=== PATIENT | female | born 1945 | race Hispanic/Latino ===

== ENCOUNTER → 2017-12-04 | Outpatient (CLI) | payer MEDICARE ==
[~2017-12-04] VITALS: Ht 157.5 cm; Wt 72.6 kg
[~2017-12-04] MED LIST: ATOR10TA69 PO; GLIM2TAB3 PO; LISI1TAB11 PO; METF500T6 PO; REGADENOSON 0.4 MG/5 ML PF SYG IVP ONE; REGADENOSON 0.4 MG/5 ML PF SYG IVP SCH
== END | disposition home or self-care (01) ==
LOC: SHCH 08:58
PROVIDERS: ATTEND Internal Medicine Cardiovascular Disease
DX: I20.8 Other forms of angina pectoris (principal)
CPT/HCPCS: 78452; 93017; 96374; A9500 ×2; J2785

== ENCOUNTER → 2018-07-18 | Outpatient (CLI) | payer MEDICARE ==
[~2018-07-18] MED LIST changes: +ASPI-555 PO; -ATOR10TA69 PO; +CEPH500B PO; +DILT180C47 PO; +ERGO500014 PO; +METF-444 PO; -METF500T6 PO; +MONT10TA24 PO; +NITR0.4T50 SL; -REGADENOSON 0.4 MG/5 ML PF SYG IVP ONE; -REGADENOSON 0.4 MG/5 ML PF SYG IVP SCH
== END | disposition home or self-care (01) ==
LOC: RAH 13:06
PROVIDERS: ATTEND Nurse Practitioner Adult Health
DX: N39.0 Urinary tract infection, site not specified (principal); Z87.440 Personal history of urinary (tract) infections
CPT/HCPCS: 76770

== ENCOUNTER → 2018-09-10 | Outpatient (CLI) | payer MEDICARE ==
[2018-09-10 14:09] LABS: HEMATOCRIT 38.8 % (36-48); MEAN CORPUSCULAR HEMOGLOBIN 31.1 pg (27.0-33.0); MEAN CORPUSCULAR VOLUME 91.3 fL (79-99); PLATELET COUNT (AUTO) 286 K/uL (130-400); RED BLOOD CELL COUNT(AUTO) 4.25 MIL/uL (4.00-5.50); RED CELL DISTRIBUTION WIDTH 13.2 % (11.0-15.5); WHITE BLOOD COUNT (AUTO) 8.2 K/uL (4.8-10.8)
[2018-09-10 14:19] LABS: CREATININE 0.8 mg/dL (0.5-1.5); POTASSIUM 4.2 mmol/L (3.5-5.1)
== END | disposition home or self-care (01) ==
LOC: LAB 13:36
PROVIDERS: ATTEND Urology
DX: N39.0 Urinary tract infection, site not specified (principal)
CPT/HCPCS: 36415; 80048; 85025

== ENCOUNTER → 2018-09-14 | Outpatient (CLI) | payer MEDICARE ==
[~2018-09-14] MED LIST changes: +IOHEXOL-350 50ML VIAL IV ONE
== END | disposition home or self-care (01) ==
LOC: RAH 07:48
PROVIDERS: ATTEND Urology
DX: K57.30 Diverticulosis of large intestine without perforation or abscess without bleeding (principal); K44.9 Diaphragmatic hernia without obstruction or gangrene; M47.816 Spondylosis without myelopathy or radiculopathy, lumbar region; N39.0 Urinary tract infection, site not specified
CPT/HCPCS: 74178; Q9967

== ENCOUNTER → 2019-02-07 | Outpatient (CLI) | payer MEDICARE ==
[~2019-02-07] MED LIST changes: -IOHEXOL-350 50ML VIAL IV ONE; -LISI1TAB11 PO; +LISI1TAB27 PO
== END | disposition home or self-care (01) ==
LOC: RAH 14:28
PROVIDERS: ATTEND Nurse Practitioner Adult Health
DX: S83.242A Other tear of medial meniscus, current injury, left knee, initial encounter (principal); M25.462 Effusion, left knee; X58.XXXA Exposure to other specified factors, initial encounter; Y93.89 Activity, other specified; Y92.89 Other specified places as the place of occurrence of the external cause; Y99.8 Other external cause status
CPT/HCPCS: 73721

== ENCOUNTER → 2019-04-24 | Outpatient (CLI) | payer MEDICARE ==
[~2019-04-24] MED LIST changes: +ALBUTEROL SULFATE 0.083% 2.5 MG/3 ML INH IH ONE; -GLIM2TAB3 PO; +GLIM2TAB4 PO; -LISI1TAB27 PO; +LISI1TAB28 PO
== END | disposition home or self-care (01) ==
LOC: RESP 08:43
PROVIDERS: ATTEND Internal Medicine Cardiovascular Disease
DX: J45.909 Unspecified asthma, uncomplicated (principal)
CPT/HCPCS: 94060; 94727; 94729

== ENCOUNTER → 2019-05-04 | Outpatient (CLI) | payer MEDICARE ==
[~2019-05-04] MED LIST changes: -ALBUTEROL SULFATE 0.083% 2.5 MG/3 ML INH IH ONE; +BENZ-17 PO; +CEPH500T PO; +EZET10TA48 PO; +ISOS30TA6 PO; +NITR100C PO; +OXYB5TAB4 PO; +SITA100T12 PO
== END | disposition home or self-care (01) ==
LOC: SHCH 14:34
PROVIDERS: ATTEND Internal Medicine Cardiovascular Disease
DX: I11.9 Hypertensive heart disease without heart failure (principal); R06.00 Dyspnea, unspecified
CPT/HCPCS: 93306

== ENCOUNTER 2019-09-10 21:02 | Emergency (ER) | payer MEDICARE ==
[~2019-09-10 21:02] MED LIST changes: -ASPI-555 PO; +ASPI-556 PO; -CEPH500B PO; -DILT180C47 PO; -ERGO500014 PO; -GLIM2TAB4 PO; -LISI1TAB28 PO; +LISI1TAB51 PO; -MONT10TA24 PO; +MONT10TA26 PO; -NITR0.4T50 SL; +OXYB-66 PO; -OXYB5TAB4 PO
[2019-09-10 21:32] LABS: BASOPHILS % (AUTO) 0.3 % (0.0-5.0); EOSINOPHILS % (AUTO) 0.3 % (0.0-8.0); HEMATOCRIT 38.4 % (36-48); MEAN CORPUSCULAR HEMOGLOBIN 30.6 pg (27.0-33.0); MEAN CORPUSCULAR HGB CONC 35.7 g/dL (32.0-36.0); MEAN CORPUSCULAR VOLUME 85.9 fL (79-99); MONOCYTES % (AUTO) 4.9 % (3.0-13.0); NEUTROPHILS % (AUTO) 81.7 % (40.0-77.0); PLATELET COUNT (AUTO) 321 K/uL (130-400); RED BLOOD CELL COUNT(AUTO) 4.47 MIL/uL (4.00-5.50); RED CELL DISTRIBUTION WIDTH 11.9 % (11.0-15.5); WHITE BLOOD COUNT (AUTO) 14.8 K/uL (4.8-10.8)
[2019-09-10 21:46] LABS: CREATININE 0.8 mg/dL (0.5-1.5); POTASSIUM 3.3 mmol/L (3.5-5.1)
[2019-09-10 21:52] LABS: BILIRUBIN,TOTAL 0.6 mg/dL (0.2-1.0); TOTAL PROTEIN, SERUM 7.5 g/dL (6.0-8.3)
[2019-09-10 21:55] LABS: B-TYPE NATRIURETIC PEPTIDE 10 pg/mL (0-100)
[2019-09-10] MEDS ORDERED: LORAZEPAM 1 MG TABLET ONE (22:16)
[2019-09-10] MEDS ORDERED: POTASSIUM CHLORIDE 20 MEQ ERTAB PO ONE (23:18)
== END 2019-09-10 23:26 | disposition home or self-care (01) ==
LOC: EDH 21:02
DX: F41.9 Anxiety disorder, unspecified (principal); E87.6 Hypokalemia; E87.1 Hypo-osmolality and hyponatremia; M19.90 Unspecified osteoarthritis, unspecified site; J45.909 Unspecified asthma, uncomplicated; E11.9 Type 2 diabetes mellitus without complications; I10 Essential (primary) hypertension; Z90.49 Acquired absence of other specified parts of digestive tract; Z90.710 Acquired absence of both cervix and uterus; Z88.7 Allergy status to serum and vaccine
CPT/HCPCS: 36415; 71046; 80053; 82550; 83880; 84484; 85025; 93005

== ENCOUNTER → 2022-02-28 | Outpatient (CLI) | payer MEDICARE ==
[~2022-02-28] MED LIST changes: -ISOS30TA6 PO; +ISOS30TA92 PO; +MONT-39 PO; -MONT10TA26 PO
== END | disposition home or self-care (01) ==
LOC: RAH 11:54
PROVIDERS: ATTEND Physical Medicine & Rehabilitation
DX: M43.16 Spondylolisthesis, lumbar region (principal); M54.51 Vertebrogenic low back pain; M41.86 Other forms of scoliosis, lumbar region; M85.88 Other specified disorders of bone density and structure, other site; M25.78 Osteophyte, vertebrae; Z90.49 Acquired absence of other specified parts of digestive tract; Z88.8 Allergy status to other drugs, medicaments and biological substances
CPT/HCPCS: 72114

== ENCOUNTER → 2022-05-31 | Outpatient (CLI) | payer MEDICARE | END | disposition home or self-care (01) | LOC: RAH 10:37 | PROVIDERS: ATTEND Internal Medicine Cardiovascular Disease | DX: M13.80 Other specified arthritis, unspecified site (principal) | CPT/HCPCS: 73502 ==

== ENCOUNTER → 2022-06-02 | Outpatient (CLI) | payer MEDICARE | END | disposition home or self-care (01) | LOC: SHCH 14:16 | PROVIDERS: ATTEND Internal Medicine Cardiovascular Disease | DX: I70.213 Atherosclerosis of native arteries of extremities with intermittent claudication, bilateral legs (principal) | CPT/HCPCS: 93926 ==

== ENCOUNTER → 2022-11-18 | Outpatient (CLI) | payer MEDICARE | END | disposition home or self-care (01) | LOC: RAH 12:58 | PROVIDERS: ATTEND Family Medicine | DX: R51.9 Headache, unspecified (principal) | CPT/HCPCS: 70450 ==

== ENCOUNTER → 2022-12-23 | Outpatient (CLI) | payer MEDICARE ==
[2022-12-23 12:45] LABS: BASOPHILS % (AUTO) 0.7 % (0.0-5.0); EOSINOPHILS % (AUTO) 3.2 % (0.0-8.0); LYMPHOCYTES % (AUTO) 17.2 % (21.0-51.0); MEAN CORPUSCULAR HGB CONC 32.8 g/dL (32.0-36.0); MEAN CORPUSCULAR VOLUME 91.5 fL (79-99); MONOCYTES % (AUTO) 4.5 % (3.0-13.0); NEUTROPHILS % (AUTO) 73.8 % (40.0-77.0); PLATELET COUNT (AUTO) 271 K/uL (130-400); RED BLOOD CELL COUNT(AUTO) 4.26 MIL/uL (4.00-5.50); RED CELL DISTRIBUTION WIDTH 12.4 % (11.0-15.5); WHITE BLOOD COUNT (AUTO) 12.1 K/uL (4.8-10.8)
[2022-12-23 13:48] LABS: ERYTHROCYTE SEDIMENTATION RATE 12 MM/HR (0-30)
== END | disposition home or self-care (01) ==
LOC: LAB 09:36
PROVIDERS: ATTEND Internal Medicine Cardiovascular Disease
DX: I10 Essential (primary) hypertension (principal)
CPT/HCPCS: 36415; 85025; 85378; 85651

== ENCOUNTER → 2023-01-27 | Outpatient (CLI) | payer MEDICARE | END | disposition home or self-care (01) | LOC: SHCH 08:24 | PROVIDERS: ATTEND Internal Medicine Cardiovascular Disease | DX: I11.9 Hypertensive heart disease without heart failure (principal); R07.9 Chest pain, unspecified; E11.9 Type 2 diabetes mellitus without complications; E78.5 Hyperlipidemia, unspecified | CPT/HCPCS: 93306 ==

== ENCOUNTER → 2023-02-22 | Outpatient (CLI) | payer MEDICARE ==
[2023-02-22 16:39] LABS: CREATININE 0.7 mg/dL (0.5-1.5); POTASSIUM 4.2 mmol/L (3.5-5.1)
== END | disposition home or self-care (01) ==
LOC: LAB 12:03
PROVIDERS: ATTEND Internal Medicine Cardiovascular Disease
DX: I10 Essential (primary) hypertension (principal)
CPT/HCPCS: 36415; 80048

== ENCOUNTER → 2023-02-27 | Outpatient (CLI) | payer MEDICARE ==
[~2023-02-27] MED LIST changes: +IOHEXOL-350 50ML VIAL IV ONE
== END | disposition home or self-care (01) ==
LOC: RAH 10:25
PROVIDERS: ATTEND Internal Medicine Cardiovascular Disease
DX: R07.9 Chest pain, unspecified (principal); R06.02 Shortness of breath; R79.1 Abnormal coagulation profile; M47.815 Spondylosis without myelopathy or radiculopathy, thoracolumbar region; Z90.49 Acquired absence of other specified parts of digestive tract
CPT/HCPCS: 71270; Q9967

== ENCOUNTER 2023-07-06 11:06 | Observation (INO) | payer MEDICARE ==
[~2023-07-06] VITALS: Ht 157.5 cm; Wt 65.5 kg
[~2023-07-06 11:06] MED LIST changes: -IOHEXOL-350 50ML VIAL IV ONE
[2023-07-06] MEDS ORDERED: NITROGLYCERIN 0.4 MG SL TAB SL PRN (12:00)
[2023-07-06] MEDS ORDERED: BENZONATATE 100 MG CAPSULE PO ONE (12:00)
[2023-07-06] MEDS ORDERED: ALBUTEROL 0.083% 2.5 MG/3 ML INH IH ONE (12:00)
[2023-07-06] MEDS ORDERED: ACETAMINOPHEN 500 MG TABLET PO ONE (12:00)
[2023-07-06] MEDS ORDERED: ASPIRIN 325MG TAB PO ONE (12:00)
[2023-07-06] MEDS ORDERED: ENOXAPARIN SODIUM 40 MG/0.4 ML SYRINGE SQ ONE (12:00)
[2023-07-06 12:18] LABS: BASOPHILS # (AUTO) 0.03 K/uL (0.00-0.20); BASOPHILS % (AUTO) 0.4 % (0.0-5.0); EOSINOPHILS # (AUTO) 0.01 K/uL (0.00-0.70); EOSINOPHILS % (AUTO) 0.1 % (0.0-8.0); HEMATOCRIT 37.4 % (36-48); IMMATURE GRANULOCYTE ABSOLUTE 0.04 K/uL (0-1); LYMPHOCYTES # (AUTO) 0.5 K/uL (1.0-4.8); LYMPHOCYTES % (AUTO) 5.8 % (21.0-51.0); MEAN CORPUSCULAR HEMOGLOBIN 30.6 pg (27.0-33.0); MEAN CORPUSCULAR HGB CONC 34.2 g/dL (32.0-36.0); MEAN CORPUSCULAR VOLUME 89.5 fL (79-99); MONOCYTES # (AUTO) 0.6 K/uL (0.1-1.0); MONOCYTES % (AUTO) 7.1 % (3.0-13.0); NEUTROPHILS # (AUTO) 7.3 K/uL (1.8-7.7); NEUTROPHILS % (AUTO) 86.1 % (40.0-77.0); PLATELET COUNT (AUTO) 248 K/uL (130-400); RED BLOOD CELL COUNT(AUTO) 4.18 MIL/uL (4.00-5.50); RED CELL DISTRIBUTION WIDTH 12.4 % (11.0-15.5); WHITE BLOOD COUNT (AUTO) 8.5 K/uL (4.8-10.8)
[2023-07-06 12:33] LABS: INR < 0.93 (0.85-1.15); PROTHROMBIN TIME 10.7 SEC (9.6-11.6)
[2023-07-06 12:34] LABS: PARTIAL THROMBOPLASTIN TIME 32.2 SEC (26.3-35.5)
[2023-07-06 12:46] VITALS: PULSE 78; RESP 20
[2023-07-06 13:15] LABS: RAPID GROUP A STREP negative (NEGATIVE)
[2023-07-06 13:23] LABS: ALBUMIN 3.6 g/dL (3.5-5.0); BILIRUBIN,TOTAL 0.6 mg/dL (0.2-1.0); CREATININE 0.7 mg/dL (0.5-1.5); POTASSIUM 3.4 mmol/L (3.5-5.1)
[2023-07-06 13:25] LABS: INFLUENZA TYPE B Negative For Type B (NEGATIVE)
[2023-07-06 13:49] LABS: COVID19 (SARS ANTIGEN RAPID) PRESUMPTIVE NEGATIVE (NEGATIVE); INFLUENZA TYPE A Positive For Type A (NEGATIVE)
[2023-07-06] MEDS ORDERED: OSELTAMIVIR PHOSPHATE 75 MG CAP PO ONE (14:00)
[2023-07-06 14:18] LABS: APPEARANCE,URINE CLOUDY (CLEAR); BILIRUBIN,URINE NEGATIVE (NEGATIVE); COLOR,URINE LIGHT-YELLOW (YELLOW); GLUCOSE, URINE (UA) >=1000 mg/dL (NEGATIVE); KETONES,URINE 20 mg/dL (NEGATIVE); LEUKOCYTE ESTERASE ,URINE 500 Leu/uL (NEGATIVE); NITRATE,URINE 2+ (NEGATIVE); OCCULT BLOOD,URINE MODERATE (NEGATIVE); PROTEIN,URINE 20 mg/dL (NEGATIVE); UROBILINOGEN,URINE 0.2 mg/dL (0.2-1.0)
[2023-07-06 14:25] LABS: ADD UA MICROSCOPIC YES
[2023-07-06 14:27] LABS: BACTERIA,URINE RARE /HPF (None Seen); MUCUS,URINE RARE LPF (None Seen); SQUAMOUS EPITHELIAL CELL,UR RARE /HPF (0-2); WBC,URINE >100 /HPF (0-1)
[2023-07-06] MEDS ORDERED: CEFTRIAXONE 1G VIAL IVPB SCH (15:00)
[2023-07-06] MEDS ORDERED: OSELTAMIVIR PHOSPHATE 75 MG CAP PO SCH (15:16)
[2023-07-06 15:33] LABS: HEMOGLOBIN A1C 6.7 % (4.0-6.0)
[2023-07-06] MEDS: 0.9%NACL 1000ML 1,000 ML IV SCH (15:40)
[2023-07-06 16:09] LABS: THYROID STIMULATING HORMONE 0.81 uIU/mL (0.36-3.74)
[2023-07-06] MEDS ORDERED: LOSA50TA64 PO (17:47)
[2023-07-06] MEDS ORDERED: ALBU18HF7 IH (17:47)
[2023-07-06] MEDS ORDERED: OMEP20CA12 PO (17:47)
[2023-07-06] MEDS ORDERED: GABA-529 PO (17:47)
[2023-07-06] MEDS ORDERED: ISOS30TA92 PO (17:47)
[2023-07-06] MEDS ORDERED: LORA10TA7 PO (17:47)
[2023-07-06] MEDS ORDERED: SITA100T12 PO (17:47)
[2023-07-06] MEDS ORDERED: ERGO500093 PO (17:47)
[2023-07-06] MEDS ORDERED: EZET-57 PO (17:47)
[2023-07-06] MEDS ORDERED: FLUT16H NASAL (17:47)
[2023-07-06 20:00] VITALS: BP 112/53; PULSE 82; RESP 18; O2SAT 94
[2023-07-06] MEDS ORDERED: IOHEXOL-350 75 ML VIAL IV ONE (20:21)
[2023-07-06] MEDS ORDERED: ALBUTEROL INHALER 90MCG/INH IH PRN (22:00)
[2023-07-06 22:10] VITALS: BP 155/71; PULSE 85; RESP 18
[2023-07-06 22:30] VITALS: O2SAT 94
[2023-07-06] MEDS ORDERED: MAGNESIUM 2GM PREMIX 50ML 50 ML IV PRN (22:30)
[2023-07-06] MEDS ORDERED: POTASSIUM CHLORIDE 10% ELIXIR 20 MEQ/15 ML UDCUP PO PRN (22:30)
[2023-07-06] MEDS ORDERED: POTASSIUM CHLORIDE 20MEQ/100ML 100 ML IV PRN (22:30)
[2023-07-06] MEDS ORDERED: KCL 20 MEQ ERTAB PO PRN (22:30)
[2023-07-07] VITALS (11 sets, daily range): BP systolic 121–148; BP diastolic 58–77; PULSE 70–85; RESP 16–20; TEMP 98.8; O2SAT 98
[2023-07-07] MEDS: 0.9%NACL 1000ML 1,000 ML IV SCH ×2 (01:00→12:17)
[2023-07-07] MEDS ORDERED: ACETAMINOPHEN 325 MG TAB PO PRN ×2 (01:30)
[2023-07-07 03:22] LABS: BASOPHILS # (AUTO) 0.03 K/uL (0.00-0.20); BASOPHILS % (AUTO) 0.5 % (0.0-5.0); EOSINOPHILS # (AUTO) 0.03 K/uL (0.00-0.70); EOSINOPHILS % (AUTO) 0.5 % (0.0-8.0); HEMATOCRIT 34.5 % (36-48); IMMATURE GRANULOCYTE ABSOLUTE 0.03 K/uL (0-1); LYMPHOCYTES # (AUTO) 1.1 K/uL (1.0-4.8); LYMPHOCYTES % (AUTO) 16.8 % (21.0-51.0); MEAN CORPUSCULAR HEMOGLOBIN 30.3 pg (27.0-33.0); MEAN CORPUSCULAR HGB CONC 34.2 g/dL (32.0-36.0); MEAN CORPUSCULAR VOLUME 88.5 fL (79-99); MONOCYTES # (AUTO) 0.6 K/uL (0.1-1.0); MONOCYTES % (AUTO) 9.4 % (3.0-13.0); NEUTROPHILS # (AUTO) 4.7 K/uL (1.8-7.7); NEUTROPHILS % (AUTO) 72.3 % (40.0-77.0); PLATELET COUNT (AUTO) 217 K/uL (130-400); RED CELL DISTRIBUTION WIDTH 12.6 % (11.0-15.5); WHITE BLOOD COUNT (AUTO) 6.5 K/uL (4.8-10.8)
[2023-07-07 03:42] LABS: CREATININE 0.5 mg/dL (0.5-1.5); POTASSIUM 3.6 mmol/L (3.5-5.1)
[2023-07-07] MEDS: CEFTRIAXONE 2GM VIAL IVPB SCH (06:08)
[2023-07-07] MEDS: INSULIN HUMULIN R 100 UNIT/ML 3ML SQ SCH ×4 (06:11→22:09)
[2023-07-07] MEDS ORDERED: SIMVASTATIN PO SCH (09:00)
[2023-07-07] MEDS ORDERED: EZETIMIBE PO SCH (09:00)
[2023-07-07] MEDS: ASPIRIN 81 MG EC TAB PO SCH (09:35)
[2023-07-07] MEDS: ISOSORBIDE MONO 30MG SR TAB PO SCH (09:35)
[2023-07-07] MEDS: PANTOPRAZOLE 40 MG TAB DR PO SCH (09:35)
[2023-07-07] MEDS: LOSARTAN 50 MG TABLET PO SCH (09:35)
[2023-07-07] MEDS: OSELTAMIVIR PHOSPHATE 75 MG CAP PO SCH ×2 (09:35→21:23)
[2023-07-07] MEDS ORDERED: GABAPENTIN 100 MG CAPSULE PO SCH (21:00)
[2023-07-08 03:49] VITALS: BP 146/65; PULSE 74; RESP 20
[2023-07-08] MEDS: 0.9%NACL 1000ML 1,000 ML IV SCH (05:15)
[2023-07-08] MEDS: CEFTRIAXONE 2GM VIAL IVPB SCH (06:03)
[2023-07-08 06:06] LABS: BASOPHILS # (AUTO) 0.03 K/uL (0.00-0.20); BASOPHILS % (AUTO) 0.6 % (0.0-5.0); EOSINOPHILS # (AUTO) 0.11 K/uL (0.00-0.70); EOSINOPHILS % (AUTO) 2.3 % (0.0-8.0); HEMATOCRIT 33.9 % (36-48); IMMATURE GRANULOCYTE ABSOLUTE 0.01 K/uL (0-1); LYMPHOCYTES # (AUTO) 1.7 K/uL (1.0-4.8); MEAN CORPUSCULAR HEMOGLOBIN 29.8 pg (27.0-33.0); MEAN CORPUSCULAR HGB CONC 33.3 g/dL (32.0-36.0); MEAN CORPUSCULAR VOLUME 89.4 fL (79-99); MONOCYTES # (AUTO) 0.4 K/uL (0.1-1.0); MONOCYTES % (AUTO) 8.9 % (3.0-13.0); NEUTROPHILS # (AUTO) 2.6 K/uL (1.8-7.7); PLATELET COUNT (AUTO) 221 K/uL (130-400); RED BLOOD CELL COUNT(AUTO) 3.79 MIL/uL (4.00-5.50); RED CELL DISTRIBUTION WIDTH 12.5 % (11.0-15.5); WHITE BLOOD COUNT (AUTO) 4.9 K/uL (4.8-10.8)
[2023-07-08] MEDS: INSULIN HUMULIN R 100 UNIT/ML 3ML SQ SCH (06:17)
[2023-07-08 06:28] LABS: ALBUMIN 2.9 g/dL (3.5-5.0); BILIRUBIN,TOTAL 0.3 mg/dL (0.2-1.0); CREATININE 0.5 mg/dL (0.5-1.5); POTASSIUM 3.1 mmol/L (3.5-5.1); TOTAL PROTEIN, SERUM 6.1 g/dL (6.0-8.3)
[2023-07-08 06:38] LABS: B-TYPE NATRIURETIC PEPTIDE 22 pg/mL (0-100)
[2023-07-08] MEDS ORDERED: OSEL75CA17 PO (07:53)
[2023-07-08] MEDS ORDERED: AMOX1TAB15 PO (07:53)
[2023-07-08 08:00] VITALS: BP 142/69; PULSE 80; RESP 17; O2SAT 95
[2023-07-08] MEDS: PANTOPRAZOLE 40 MG TAB DR PO SCH (08:44)
[2023-07-08] MEDS: ASPIRIN 81 MG EC TAB PO SCH (08:44)
[2023-07-08] MEDS: ISOSORBIDE MONO 30MG SR TAB PO SCH (08:44)
[2023-07-08] MEDS: OSELTAMIVIR PHOSPHATE 75 MG CAP PO SCH (08:44)
[2023-07-08] MEDS: LOSARTAN 50 MG TABLET PO SCH (08:44)
[2023-07-08] MEDS ORDERED: POTASSIUM CHLORIDE 10% ELIXIR 20 MEQ/15 ML UDCUP PO ONE (10:30)
== END 2023-07-08 10:30 | disposition home or self-care (01) ==
LOC: EDH 11:06 → INTOOBSV 14:50 → EDHIP 14:50 → 3CH 20:43
PROVIDERS: ADMIT Internal Medicine; ATTEND Internal Medicine
DX: J10.1 Influenza due to other identified influenza virus with other respiratory manifestations (principal); Z20.822 Contact with and (suspected) exposure to COVID-19; N39.0 Urinary tract infection, site not specified; E44.0 Moderate protein-calorie malnutrition; I10 Essential (primary) hypertension; E78.5 Hyperlipidemia, unspecified; E87.6 Hypokalemia; R54 Age-related physical debility; E11.9 Type 2 diabetes mellitus without complications; I25.110 Atherosclerotic heart disease of native coronary artery with unstable angina pectoris; I34.81 Nonrheumatic mitral (valve) annulus calcification; K44.9 Diaphragmatic hernia without obstruction or gangrene; B96.20 Unspecified Escherichia coli [E. coli] as the cause of diseases classified elsewhere; Z88.1 Allergy status to other antibiotic agents; Z79.82 Long term (current) use of aspirin; Z79.899 Other long term (current) drug therapy; Z90.49 Acquired absence of other specified parts of digestive tract; Z90.710 Acquired absence of both cervix and uterus; Z68.26 Body mass index [BMI] 26.0-26.9, adult; W19.XXXA Unspecified fall, initial encounter; Y93.89 Activity, other specified; Y92.098 Other place in other non-institutional residence as the place of occurrence of the external cause; Y99.8 Other external cause status
CPT/HCPCS: 99285; 70450; 96361 ×3; 93970; 96374; 71045; 87426; 96372; 83036; 84443; 82550 ×2; 84484 ×6; 80053 ×2; 85025 ×3; 85378; 85610; 85730; 87040 ×2; 87077; 87088; 87186; 87880; 87804 ×2; 83605; 86140; 81001; 36415 ×3; 72170; 71270; 93005; 94640; 84145; 93306; 97161; 96375; 97530 ×2; 83735; 80048; 82948 ×5; 93356; 96376; 83880; J7030; J0696 ×3; J1650; Q9967; G0378; 96365; G8980-CH; G8983-CH

== ENCOUNTER → 2024-02-14 | Outpatient (CLI) | payer MEDICARE ==
[~2024-02-14] MED LIST changes: +ALBU18HF7 IH; +AMOX1TAB15 PO; -BENZ-17 PO; -CEPH500T PO; +ERGO500093 PO; +EZET-57 PO; -EZET10TA48 PO; +FLUT16H NASAL; +GABA-529 PO; -LISI1TAB51 PO; +LORA10TA7 PO; +LOSA50TA64 PO; -MONT-39 PO; -NITR100C PO; +OMEP20CA12 PO; +OSEL75CA17 PO; -OXYB-66 PO
== END | disposition home or self-care (01) ==
LOC: SHCH 10:49
PROVIDERS: ATTEND Internal Medicine Cardiovascular Disease
DX: I73.9 Peripheral vascular disease, unspecified (principal)
CPT/HCPCS: 93925

== ENCOUNTER → 2024-05-09 | Outpatient (CLI) | payer MEDICARE ==
--- NOTE | 2024-05-10 08:27 | HMCSR ---
APPROVED REPORT Laterality: Bilateral Doppler Spectral Velocity Analysis PSV / EDVPSV / EDV ECA (R) 221 / cm/sECA (L) 105 / cm/s dICA (R) 119 / 27 cm/sdICA (L) 106 / 33 cm/s Jaylin (R) 106 / 23 cm/smICA (L) 120 / 28 cm/s pICA (R) 84 / 21 cm/spICA (L) 84 / 22 cm/s dCCA (R) 83 / 15 cm/sdCCA (L) 97 / 14 cm/s mCCA (R) 109 / 19 cm/smCCA (L) 123 / 17 cm/s pCCA (R) 96 / 13 cm/spCCA (L) 153 / 17 cm/s Vert (R) 59 / cm/sVert (L) 54 / cm/s Subl. (R) 177 / cm/sSubl. (L) 235 / cm/s ICA/CCA 1.09ICA/CCA 0.78 Technologist Impression Mild heterogenous plaque noted in the bilateral carotid arteries without hemodynamic significance. Elevated velocities noted in the right external carotid artery. The bilateral vertebral arteries reflect antegrade flow. Conclusion Minimal plaque noted in the bilateral carotids, without hemodynamic significance. Bilateral vertebral arteries appear antegrade. Conclusion Minimal plaque noted in the bilateral carotids, without hemodynamic significance. Bilateral vertebral arteries appear antegrade.
== END | disposition home or self-care (01) ==
LOC: SHCH 10:14
PROVIDERS: ATTEND Internal Medicine Cardiovascular Disease
DX: I65.23 Occlusion and stenosis of bilateral carotid arteries (principal); I25.10 Atherosclerotic heart disease of native coronary artery without angina pectoris
CPT/HCPCS: 93880

== ENCOUNTER 2024-10-20 22:47 | Emergency (ER) | payer MEDICARE ==
[~2024-10-20] VITALS: Ht 157.5 cm; Wt 62.1 kg
[2024-10-21 00:32] LABS: APPEARANCE,URINE CLEAR (CLEAR); BILIRUBIN,URINE NEGATIVE (NEGATIVE); COLOR,URINE COLORLESS (YELLOW); GLUCOSE, URINE (UA) 30 mg/dL (NEGATIVE); KETONES,URINE NEGATIVE (NEGATIVE); LEUKOCYTE ESTERASE ,URINE NEGATIVE Leu/uL (NEGATIVE); NITRATE,URINE NEGATIVE (NEGATIVE); OCCULT BLOOD,URINE NEGATIVE (NEGATIVE); PH,URINE 7.5 (5.0-8.0); PROTEIN,URINE NEGATIVE (NEGATIVE); UROBILINOGEN,URINE 0.2 mg/dL (0.2-1.0)
[2024-10-21 00:36] LABS: ADD UA MICROSCOPIC YES
[2024-10-21 00:40] LABS: WBC,URINE 0-1 /HPF (0-1)
--- NOTE | 2024-10-21 02:10 | NUR ---
ASSUMED PT CARE AT THIS TIME
--- NOTE | 2024-10-21 02:13 | ERN ---
ED Note History of Present Illness Stated Complaint: FEVER Chief Complaint: Fever Time Seen by MD: 23:09 Dictation: PATIENT IS A 79-YEAR-OLD FEMALE COMING IN [facility] WITH COMPLAINTS OF HAVING FEVER OFF AND ON SINCE LAST WEEKEND. SHE SAID SHE HAS HAD CHILLS, HAS A SWELLING TO THE LEFT ANTERIOR NECK. SHE STATES SHE HAD SEEN HER PRIMARY CARE DOCTOR ON MONDAY WHO WITHOUT THE BENEFIT OF LABS OR IMAGING, DIAGNOSED HER WITH A ACUTE SINUSITIS AND PLACED ON AUGMENTIN 875 B.I.D. FOR 10 DAYS. SHE STATES SHE HAS BEEN COMPLIANT WITH THE MEDICATIONS STILL HAS SEVERAL DAYS LEFT. SHE DENIES NO SPECIFIC COMPLAINTS JUST THE FEVER CHILLS IN HIS CONCERNED ABOUT THE LUMP TO HER LEFT ANTERIOR NECK. SHE ALSO WAS CONCERNED ABOUT HAVING A URINARY TRACT INFECTION BECAUSE SHE IS PRONE TO URINARY TRACT INFECTIONS. I EXPLAINED TO PATIENT THAT AUGMENTIN 875 WAS WONDERFUL FOR ANY INFECTIOUS PROCESS ABOVE THE NECK TO INCLUDE SINUSITIS OTITIS MEDIA PHARYNGITIS OR TONSILLITIS.. SHE SAID SHE HAS BEEN DOING A AN APPOINTMENT WITH A AN ENT NEXT WEEK. Allergies: Coded Allergies: levofloxacin (Verified Allergy, Severe, SWELLING, 07/06/23) RASH AND SWELLING Home Meds Active Scripts Oseltamivir Phosphate (Oseltamivir Phosphate) 75 Mg Capsule, 75 MG PO BID, #8 CAP 0 Refills Prov:ALEXANDRO WEINSTEIN TELEPHONE ANSWERING SERVICE OPERATOR 07/08/23 Amoxicillin/Potassium Clav (Amox Tr-K Clv 500-125 mg Tab) 500 Mg-125 Mg Tablet, 1 EACH PO BID, #14 TAB 0 Refills Prov:ALEXANDRO WEINSTEIN TELEPHONE ANSWERING SERVICE OPERATOR 07/08/23 Reported Medications Losartan Potassium (Losartan Potassium) 50 Mg Tablet, 50 MG PO DAILY, TAB 07/06/23 Ergocalciferol (Vitamin D2) (Vitamin D2) 1,250 Mcg (20134 Unit) Capsule, 1250 MCG PO DAILY, CAP 07/06/23 Ezetimibe/Simvastatin (Ezetimibe-Simvastatin 10-10 mg) 10 Mg-10 Mg Tablet, 1 EACH PO DAILY, TAB 07/06/23 Isosorbide Mononitrate (Isosorbide Mononitrate ER) 30 Mg Tab.er.24h, 30 MG PO DAILY, TAB 07/06/23 Gabapentin (Gabapentin) 100 Mg Capsule, 100 MG PO HS, CAP 07/06/23 Albuterol Sulfate (Ventolin Hfa) 90 Mcg Hfa.aer.ad, 18 GM IH QID PRN for SHORTNESS OF BREATH/WHEEZING, INHALER 07/06/23 Fluticasone Propionate (Flonase Nasal Driggs) 50 Mcg/Actuation Driggs, 50 MCG NASAL DAILY, SPRAY 07/06/23 Omeprazole (Omeprazole) 20 Mg Capsule.dr, 20 MG PO DAILY, CAP 07/06/23 Loratadine (Loratadine) 10 Mg Tablet, 10 MG PO DAILY, TAB 07/06/23 Sitagliptin Phosphate (Januvia) 100 Mg Tablet, 100 MG PO DAILY, TAB 07/06/23 Aspirin (Aspir 81) 81 Mg Tablet.dr, 81 MG PO DAILY, TAB 01/18/18 Metformin HCl (Metformin HCl) 500 Mg Tablet, 500 MG PO BID, TAB 07/22/16 Past Medical History Past Medical History: Asthma, Diabetes-Type II, High Cholesterol, Hypertension Surgical History: Hysterectomy, Cholecystectomy Surgical History Other: CATARACTS Social History: Negative History: Not Applicable RN Note Reviewed/Agreed w/PFSH: Yes Review of System Dictation CONSTITUTIONAL: NEGATIVE EXCEPT FOR HPI FEVER CHILLS HEAD/FACE: NEGATIVE EXCEPT FOR HPI EENT: NEGATIVE EXCEPT FOR HPI RESPIRATORY: NEGATIVE EXCEPT FOR HPI GASTROINTESTINAL/ABDOMINAL: NEGATIVE EXCEPT FOR HPI GENITOURINARY: NEGATIVE EXCEPT FOR HPI MUSCULOSKELETAL: NEGATIVE EXCEPT FOR HPI INTEGUMENTARY: NEGATIVE EXCEPT FOR HPI NEUROLOGICAL/PSYCH: NEGATIVE EXCEPT FOR HPI HEMATOLOGIC/LYMPHATIC: NEGATIVE EXCEPT FOR HPI MILD SWELLING TENDERNESS TO ANTERIOR LEFT NECK ALL SYSTEMS NEGATIVE, EXCEPT NOTED ABOVE. 13 POINT REVIEW OF SYSTEMS ASSESSED AND ALL NEGATIVE EXCEPT FOR ABOVE. Initial Vital Sign VS Vital Signs Date Time Temp Pulse Resp B/P (MAP) Pulse Ox O2 Delivery O2 Flow Rate FiO2 10/20/24 22:53 100.2 99 18 190/79 97 Room Air 0 Physical Exam Dictation VITAL SIGNS REVIEWED GENERAL APPEARANCE: ALERT, ORIENTED X 3, NO ACUTE DISTRESS, WELL DEVELOPED, NOURISHED. 0/10 PAIN HEAD AND FACE: NON-TRAUMATIC. EYES: PERRL, PINK CONJUNCTIVAS, EYELID NO TRAUMA, ANTERIOR CHAMBER WITH ARCUS SENILIS. EARS: PINNAS INTACT AND NO SIGNS OF TRAUMA OR ERYTHEMA EAR CANALS CLEAR AND NO DISCHARGE TM NO ERYTHEMA NOSE: NO DISCHARGE, NO BLEEDING. OROPHARYNX: MOUTH NORMAL, TONGUE PINK, SPEECH CLEAR, SWALLOW INTACT UVULA MIDLINE TONSILS NOT VISIBLE PHARYNX CLEAR,NO ERYTHEMA, TONSILS NO EXUDATES, NO ABSCESSES NOTED, MUCOUS MEMBRANE MOIST NECK: SUPPLE, NON-TENDER, NO THYROMEGALY, NO MASSES, NO JVD, NO BRUITS BREAST:DEFERRED CHEST:NO TENDERNESS, NO CREPITUS, NO PARADOXICAL MOVEMENT, NO RETRACTIONS LUNGS:CLEAR, WELL-VENTILATED, SYMMETRIC, NO RALES, NO WHEEZING, NO RHONCHI, NO STRIDOR, GOOD BREATH SOUNDS BILATERALLY HEART: REGULAR RATE, REGULAR RHYTHM, NO MURMUR, NO GALLOPS VASCULAR: NO PERIPHERAL EDEMA, ABDOMEN: SOFT, POSITIVE BOWEL SOUNDS, NONDISTENDED, NO GUARDING, NONTENDER, NO REBOUND, NO MASSES NO HEPATOMEGALY, NO SPLENOMEGALY, NO VYAS'S SIGN, NO HERNIAS. RECTAL: DEFERRED GENITAL: DEFERRED NEUROLOGICAL: NORMAL SPEECH, MOTOR FUNCTION INTACT, SENSORY FUNCTION INTACT MUSCULOSKELETAL: NECK NONTENDER, FULL RANGE OF MOTION, BACK NONTENDER, FULL RANGE OF MOTION, EXTREMITIES: NONTENDER, FULL RANGE OF MOTION SKIN: COLOR PINK, DRY, NO TURGOR, NO RASH, NO LACERATIONS, NO ABRASIONS, NO CONTUSIONS. LYMPHATIC: SWOLLEN LYMPH NODE TO LEFT ANTERIOR NECK. Results (Laboratory/Radiology) Laboratory/Radiology Laboratory Tests Test 10/20/24 22:55 Urine Color COLORLESS (YELLOW) Urine Appearance CLEAR (CLEAR) Urine pH 7.5 (5.0-8.0) Urine Specific [place] 1.005 (1.001-1.031) Urine Protein NEGATIVE mg/dL (NEGATIVE) Urine Glucose (UA) 30 mg/dL (NEGATIVE) H Urine Ketones NEGATIVE mg/dL (NEGATIVE) Urine Occult Blood NEGATIVE (NEGATIVE) Urine Nitrate NEGATIVE (NEGATIVE) Urine Bilirubin NEGATIVE mg/dL (NEGATIVE) Urine Urobilinogen 0.2 mg/dL (0.2-1.0) Urine Leukocyte Esterase NEGATIVE Aydee/uL Urine RBC 2-5 /HPF (0-1) H Urine WBC 0-1 /HPF (0-1) Urine Bacteria None /HPF (None Seen) Labs Reviewed?: Yes ED Course ED Course Orders Procedure Category Date Status Time Cbc With Differential LAB 10/21/24 Logged 00:01 Basic Metabolic Panel LAB 10/21/24 Logged 00:01 Lactic Acid LAB 10/21/24 Logged 00:01 Urinalysis Profile LAB 10/20/24 Complete 22:55 Covid Rna Naat LAB 10/21/24 Logged 00:01 Influenza Type A & B, LAB 10/21/24 Logged Rapid 00:01 Rapid (Group A Strep) LAB 10/21/24 Logged 00:01 Blood Cult JACK 10/21/24 Logged 00:01 Blood Cult JACK 10/21/24 Logged 00:01 Acetaminophen 500mg PHA 10/21/24 Complete Tab (Tylenol 500mg T 01:00 Us Soft Tissue Neck US 10/21/24 Verified 02:09 Current Medications Medications (Trade) Dose Ordered Sig/Wilfrido Route PRN Reason Start Time Stop Time Status Last Admin Dose Admin Acetaminophen (TYLenol 500MG TAB) 1,000 mg ONCE ONCE PO 10/21/24 01:00 10/21/24 01:01 DC Vital Signs Date Time Temp Pulse Resp B/P (MAP) Pulse Ox O2 Delivery O2 Flow Rate FiO2 10/20/24 22:53 100.2 99 18 190/79 97 Room Air 0 DX & DISP Departure Condition: Stable Referrals: SHAZIA CARBAJAL MD (PCP) BALJIT BECKWITH SOAP GRINDER October 21, 2024 02:12
[2024-10-21 02:29] VITALS: TEMP 99.4
[2024-10-21] MEDS: acetaMINOPHEN 500 MG TABLET PO ONE (02:29)
[2024-10-21 02:42] LABS: BASOPHILS # (AUTO) 0.08 K/uL (0.00-0.20); BASOPHILS % (AUTO) 0.6 % (0.0-5.0); EOSINOPHILS # (AUTO) 0.14 K/uL (0.00-0.70); HEMATOCRIT 37.9 % (36-48); IMMATURE GRANULOCYTE ABSOLUTE 0.06 K/uL (0-1); LYMPHOCYTES % (AUTO) 14.8 % (21.0-51.0); MEAN CORPUSCULAR HEMOGLOBIN 29.6 pg (27.0-33.0); MEAN CORPUSCULAR HGB CONC 32.7 g/dL (32.0-36.0); MEAN CORPUSCULAR VOLUME 90.5 fL (79-99); MONOCYTES # (AUTO) 0.8 K/uL (0.1-1.0); MONOCYTES % (AUTO) 5.8 % (3.0-13.0); NEUTROPHILS # (AUTO) 10.4 K/uL (1.8-7.7); NEUTROPHILS % (AUTO) 77.4 % (40.0-77.0); PLATELET COUNT (AUTO) 494 K/uL (130-400); RED BLOOD CELL COUNT(AUTO) 4.19 MIL/uL (4.00-5.50); RED CELL DISTRIBUTION WIDTH 11.6 % (11.0-15.5); WHITE BLOOD COUNT (AUTO) 13.5 K/uL (4.8-10.8)
[2024-10-21 02:52] LABS: CREATININE 0.8 mg/dL (0.5-1.0); POTASSIUM 3.5 mmol/L (3.5-5.1)
[2024-10-21 03:21] LABS: RAPID GROUP A STREP negative (NEGATIVE)
[2024-10-21 03:24] LABS: SARS-CoV-2, RNA, NAAT NEGATIVE SARS CoV-2 (NEGATIVE)
[2024-10-21 03:31] LABS: INFLUENZA TYPE A Negative For Type A (NEGATIVE); INFLUENZA TYPE B Negative For Type B (NEGATIVE)
[2024-10-21 04:15] VITALS: BP 112/53; PULSE 70; RESP 18; TEMP 98.8; O2SAT 97
--- NOTE | 2024-10-21 08:23 | HMCIMG ---
Exam Type: US SOFT TISSUE NECK Clinical Information: SWELLING TENDERNESS TO LEFT ANTERIOR NECK. Comparison: None Findings: No masses or lesions are seen. The thyroid is prominent and there is a simple exophytic thyroid cyst. IMPRESSION: No masses of the neck.
== END 2024-10-21 04:17 | disposition home or self-care (01) ==
LOC: EDH 22:47
DX: R50.9 Fever, unspecified (principal); E11.9 Type 2 diabetes mellitus without complications; E78.00 Pure hypercholesterolemia, unspecified; I10 Essential (primary) hypertension; J45.909 Unspecified asthma, uncomplicated; Z79.82 Long term (current) use of aspirin; Z79.84 Long term (current) use of oral hypoglycemic drugs; Z79.899 Other long term (current) drug therapy; Z88.1 Allergy status to other antibiotic agents; Z90.49 Acquired absence of other specified parts of digestive tract; Z90.710 Acquired absence of both cervix and uterus; Z20.822 Contact with and (suspected) exposure to COVID-19
CPT/HCPCS: 36415; 76536; 80048; 81001; 83605; 85025; 87040; 87635; 87804; 87880; 99284